=== PATIENT | female | born 1985 | race Caucasian/White ===

== ENCOUNTER 2021-06-10 14:27 | Outpatient (CLI) | payer BC ==
[2021-06-10 23:03] LABS: SARS-CoV-2 PCR by NAA Not Detected (NotDetected)
== END 2021-06-10 14:28 | disposition home or self-care (01) ==
LOC: CSHLAB 14:27
PROVIDERS: ATTEND Student in an Organized Health Care Education/Training Program
DX: Z20.822 Contact with and (suspected) exposure to COVID-19 (principal)
CPT/HCPCS: U0003; U0005

== ENCOUNTER 2021-06-13 05:30 | Inpatient (IN) | payer BC ==
[2021-06-13] MEDS ORDERED: Bupivacaine 0.25% HCL 30 ML VIAL ONE (08:00)
[2021-06-13] MEDS ORDERED: ePHEDrine Sulfate 50 MG/10 ML VIAL ONE (08:00)
[2021-06-13] MEDS ORDERED: Ibuprofen 800 MG TAB PO PRN (11:11)
[2021-06-13] MEDS ORDERED: Promethazine HCl 25 MG/ML VIAL IM PRN ×3 (11:11→21:32)
[2021-06-13] MEDS ORDERED: Ondansetron PF 4 MG/2 ML Vial IVP PRN ×3 (11:11→21:32)
[2021-06-13] MEDS ORDERED: Carboprost 250 MCG/ML AMP IM PRN (11:11)
[2021-06-13] MEDS ORDERED: Misoprostol 200 MCG TAB PR PRN (11:11)
[2021-06-13] MEDS ORDERED: Acetaminophen 500 MG TAB PO PRN (11:11)
[2021-06-13] MEDS ORDERED: NS w/ Oxytocin 30 units 500 ML IV SCH ×2 (11:11)
[2021-06-13] MEDS ORDERED: Lidocaine 1% (PF) 30 ML VIAL SC PRN (11:11)
[2021-06-13] MEDS ORDERED: hydrALAZINE 20 MG/ML VIAL SLOW IVP PRN ×2 (11:11→21:32)
[2021-06-13] MEDS ORDERED: Penicillin G Potassium 5 MILL.UNITS in Sodium Chloride 0.9% 100 ML IVPB SCH (11:11)
[2021-06-13] MEDS ORDERED: Butorphanol Tartrate 1 MG/ML VIAL SLOW IVP PRN (11:11)
[2021-06-13] MEDS ORDERED: HYDROcodone/Acetaminophen 5/325 mg Tablet PO PRN ×2 (11:11→21:32)
[2021-06-13] MEDS ORDERED: Methylergonovine 0.2 MG/ML VIAL IM PRN (11:11)
[2021-06-13] MEDS ORDERED: Diphenoxylate HCl/Atropine Tablet PO PRN (11:11)
[2021-06-13] MEDS: Lactated Ringer's 1,000 ML IV SCH ×2 (11:44→14:53)
[2021-06-13 12:18] LABS: Hemoglobin 11.6 g/dL (12.0-15.5); Mean Corpuscular HGB CONC 33.7 g/dL (32.0-36.0); Mean Corpuscular Hemoglobin 30.2 pg (27.0-33.0); Mean Corpuscular Volume 89.6 fl (81.6-98.3); Mean Platelet Volume 10.7 fl (7.4-10.4); Platelet Count 148 10x3/uL (150-450); Red Blood Cell (RBC) Count 3.84 10x6/uL (3.90-5.03)
[2021-06-13] MEDS ORDERED: Fentanyl 2 mcg/Bup 0.1% Cadd 100 ML ONE (12:26)
[2021-06-13 13:04] LABS: Syphilis Antibody Nonreactive (Nonreactive); Syphilis Antibody Index 0.03 S/CO (<1.00 Non-Reactive)
[2021-06-13 13:05] LABS: Hep B Surf Ag Non-Reactive S/CO (NonReactive)
[2021-06-13 13:18] LABS: HBSAg Index 0.13 S/CO (0-0.99)
[2021-06-13] MEDS ORDERED: Lactated Ringer's 500 ML IV PRN (13:23)
[2021-06-13] MEDS ORDERED: ePHEDrine Sulfate 50 MG/10 ML VIAL SLOW IVP PRN (13:23)
[2021-06-13] MEDS ORDERED: diphenhydrAMINE 50 MG/ML VIAL IVP PRN (13:23)
[2021-06-13] MEDS ORDERED: Acetaminophen 325 MG TAB PO PRN (13:23)
[2021-06-13] MEDS ORDERED: Hydrocerin (Eucerin) Cream 120 gm Jar TOP PRN (13:23)
[2021-06-13] MEDS ORDERED: Naloxone HCl 0.4 mg/ml Vial IVP PRN ×2 (13:23)
[2021-06-13] MEDS ORDERED: Communication Order-Pharmacy FS SCH (13:30)
[2021-06-13] MEDS ORDERED: Fentanyl 2 mcg/Bupivacaine 0.1% Cassette 100 ML EPIDURAL SCH (13:30)
[2021-06-13] MEDS: Penicillin G 2.5 MILL.units 2.5 MILL.UNITS in Premix Bag 1 BAG IVPB SCH (16:33)
[2021-06-13 18:38] VITALS: BMI 28.3
[2021-06-13] MEDS ORDERED: Boostrix 0.5 ML (Tdap) VIAL IM ONE (21:32)
[2021-06-13] MEDS ORDERED: Milk Of Magnesia 30 ML UDCUP PO PRN (21:32)
[2021-06-13] MEDS ORDERED: Benzocaine-Menthol 82.5 ML CAN TOP PRN (21:32)
[2021-06-13] MEDS ORDERED: Lanolin Ointment 7 GM TUBE TOP PRN (21:32)
[2021-06-13] MEDS ORDERED: Bisacodyl 10 MG SUPP PR PRN (21:32)
[2021-06-13] MEDS ORDERED: diphenhydrAMINE 25 MG CAP PO PRN (21:32)
[2021-06-13] MEDS ORDERED: Preparation H Ointment 28 GM TUBE PR PRN (21:32)
[2021-06-13] MEDS ORDERED: Docusate 100 MG CAP PO SCH (21:45)
[2021-06-13] MEDS: Ibuprofen 800 MG TAB PO SCH (21:51)
[2021-06-13] MEDS: Docusate 100 MG CAP PO SCH (21:51)
[2021-06-13] MEDS: HYDROcodone/Acetaminophen 5/325 mg Tablet PO PRN (23:00)
[2021-06-14] MEDS: HYDROcodone/Acetaminophen 5/325 mg Tablet PO PRN (04:18)
[2021-06-14] MEDS: Ibuprofen 800 MG TAB PO SCH ×2 (06:25→13:21)
[2021-06-14] MEDS: Lactated Ringer's 1,000 ML IV SCH (07:31)
[2021-06-14] MEDS: Penicillin G 2.5 MILL.units 2.5 MILL.UNITS in Premix Bag 1 BAG IVPB SCH (07:31)
[2021-06-14] MEDS: Ferrous Sulfate 325 MG TAB PO SCH ×2 (07:33→18:02)
[2021-06-14] MEDS ORDERED: Prenatal Vitamin 1 TAB PO SCH (09:00)
[2021-06-14] MEDS: Docusate 100 MG CAP PO SCH (09:19)
[2021-06-14] MEDS ORDERED: Caffeine Citrated 60 MG/3 ML (ORALLY) PO SCH ×2 (11:45→12:00)
[2021-06-14 17:22] VITALS: BP 109/68; TEMP 98.2
== END 2021-06-14 19:13 | disposition home or self-care (01) | DRG 807 ==
LOC: CSHLD 10:54 → CSHPP 19:35
PROVIDERS: ADMIT Student in an Organized Health Care Education/Training Program; ATTEND Student in an Organized Health Care Education/Training Program
PROC: 10E0XZZ Delivery of Products of Conception, External Approach (ICD-10-PCS; principal; 2021-06-13)
PROC: 10907ZC Drainage of Amniotic Fluid, Therapeutic from Products of Conception, Via Natural or Artificial Opening (ICD-10-PCS; 2021-06-13)
PROC: 3E0234Z Introduction of Serum, Toxoid and Vaccine into Muscle, Percutaneous Approach (ICD-10-PCS; 2021-06-13)
DX: O26.893 Other specified pregnancy related conditions, third trimester (principal); Z37.0 Single live birth; E03.9 Hypothyroidism, unspecified; O99.284 Endocrine, nutritional and metabolic diseases complicating childbirth; Z3A.39 39 weeks gestation of pregnancy; L30.9 Dermatitis, unspecified; Z79.899 Other long term (current) drug therapy; Z79.890 Hormone replacement therapy; O99.72 Diseases of the skin and subcutaneous tissue complicating childbirth; Z67.11 Type A blood, Rh negative; O99.824 Streptococcus B carrier state complicating childbirth
CPT/HCPCS: 51702; 85027; 85461; 86780; 86850; 86900; 86901; 87340; 90384; 96372; J2540; J2590; J3490; J7120; S0020